=== PATIENT | female | born 1965 | race Caucasian/White ===

== ENCOUNTER → 2023-12-24 13:46 | Outpatient (REF) | payer OTHER, SELFPAY | LOC: PAVMRI 13:46 | PROVIDERS: ATTENDING PHYSICIAN Physical Medicine & Rehabilitation Pain Medicine; FAMILY PHYSICIAN Family Medicine | DX: M54.16 Radiculopathy, lumbar region (principal) | CPT/HCPCS: 72148 ==

== ENCOUNTER 2024-04-28 14:02 | Emergency (ER) | payer OTHER, SELFPAY ==
[2024-04-28 14:03] VITALS: BP 187/96
--- NOTE | 2024-04-28 14:22 | ED.GENMED ---
History of Present Illness
General
Chief Complaint: Skin Problem
Source: patient
Exam Limitations: none
Time Seen by Provider: 04/28/24 14:09
History of Present Illness
History of Present Illness:
Patient scratched by her neighbors cat yesterday. Scratched in the right mid forearm and dorsal right hand. Scratch was hard. Last tetanus is less than 5. No fever chills or other complaints. Concerned because of increased swelling overnight.
Animals had his rabies shots. Patient is truly allergic to penicillin and cephalosporins.
Past History
Past History
ED Past Medical History: HTN
ED Past Surgical History: None
Social History
Tobacco: Non-smoker
Alcohol: None
Drug: None
Personal:
Living: with family
Review of Systems
Review of Systems
All Other Systems: Not applicable
Constitutional: Denies fever or chills
Phy Exam
Physical Exam
Physical Exam:
General: Nontoxic appearing in no distress
Skin: Warm and dry, no rash
Neuro: Alert, nontoxic, grossly nonfocal
Psychiatric: Good eye contact and appropriate
Musculoskeletal: Small abrasion or puncture wound to the dorsal right hand. Small abrasion or puncture room to the mid dorsal right forearm. Surrounding the right forearm is a small area of ecchymosis. There is no drainage there is no erythema
there is no lymphangitis. Surrounding the hand puncture wound dorsally there is moderate swelling although no warmth no erythema there is somewhat of an ecchymotic hue to this.
Course
Orders/Labs/Results
Orders:
Orders
04/28/24 14:22
Clindamycin 600 mg IVPB NOW Clindamycin 600 mg/50 ml [Cleocin] 600 mg in 50 ml IV NOW
Vital Signs
Initial and Last Documented VS:
Initial Vital Signs
Temp Pulse Resp BP Pulse Ox
98.1 F 86 16 187/96 99
04/28/24 14:03 04/28/24 14:03 04/28/24 14:03 04/28/24 14:03 04/28/24 14:03
Last Documented Vital Signs
Temp Pulse Resp BP Pulse Ox
98.1 F 86 16 187/96 99
04/28/24 14:03 04/28/24 14:03 04/28/24 14:03 04/28/24 14:03 04/28/24 14:03
MDM/Problems Addressed
Differential Diagnosis Includes:
Clinically this does not appear infected at this time. The mid forearm puncture/abrasion has a small area of ecchymosis. The dorsal hand has some swelling but there is no warmth or erythema no drainage no lymphangitis. Does not have that
appearance of cellulitis at this time has more of a bruising ecchymotic appearance. Patient is on clindamycin 303 times a day. And doxycycline. At this time I do not feel there is any testing that would prove or disprove any infectious process.
The white count is 2. In addition she has no fever or chills and there is no clinical findings to support infection at this time except for this dorsal swelling that appears more ecchymosis. We will give an IV dose of clinda continue the current
regimen and follow-up closely tomorrow morning. Animal has had his rabies shots
*Pulse Oximetry
Patient hypoxic: no
*Critical Care Note
Total Time (30-74mins, 75-104mins- exclusive of procedures): Not Applicable
ED Attending Note
-
Portions of this chart may have been created with voice recognition software.� Occasional wrong word or��sound alike� substitutions may have occurred due to the inherent limitations of voice recognition software.
Discharge Plan
Departure
Patient Disposition: Home (Routine Discharge)
Date of Disposition: 04/28/24
Time of Disposition: 14:27
Patient with high blood pressure during this ER visit?: Yes
Discharge Problem:
Right arm wound , Secondary to cat scratch/puncture
Instructions: Animal and human bites, BLOOD PRESSURE
Prescriptions:
No Action
amlodipine 10 MG tablet
10 mg PO DAILY
atenolol 50 MG tablet
50 mg PO DAILY Qty: 30 0RF
simvastatin 40 MG tablet
40 mg PO DAILY Qty: 30 0RF
aspirin [Ecotrin Low Strength] 81 MG tablet,delayed release (DR/EC)
81 mg PO Q48H Qty: 15 0RF
hydrocodone-acetaminophen 1 TABLET tablet
1 PO DAILY
spironolactone 25 MG tablet
25 mg PO DAILY
sertraline 50 MG tablet
50 mg PO DAILY
hvquwlkjuqed-Am-gzsx-minerals [Multiple Vitamin, Womens] 1 EACH tablet
1 ea PO DAILY
fexofenadine 180 MG tablet
180 mg PO DAILY
omeprazole 20 MG capsule,delayed release(DR/EC)
20 mg PO DAILY
omega 5-boy-sis-fish oil [Fish Oil] 1 EACH capsule
1 PO DAILY
Activity Restrictions/Additional Instructions:
Continue your current antibiotic regimen. Get a dose of clinda and this evening. Continue the doxycycline. Keep the arm elevated. Get rechecked at urgent care tomorrow
In the meantime, if the swelling increases significantly, redness, streaking, fever or chills return immediately to the ER
Discharge Date and Time
Print Language: GREEK
[2024-04-28 14:30] VITALS: BMI 34.8
[2024-04-28] MEDS: CLEOCIN 50 IV (14:39)
[2024-04-28 15:16] VITALS: BP 152/78
== END 2024-04-28 15:18 | disposition home or self-care (01) ==
LOC: EMR 14:02
PROVIDERS: EMERGENCY PHYSICIAN Emergency Medicine; FAMILY PHYSICIAN Family Medicine
DX: S50.811A Abrasion of right forearm, initial encounter (principal); S51.831A Puncture wound without foreign body of right forearm, initial encounter; S61.431A Puncture wound without foreign body of right hand, initial encounter; W55.03XA Scratched by cat, initial encounter; I10 Essential (primary) hypertension
CPT/HCPCS: 99284; 96365

== ENCOUNTER → 2025-01-09 10:02 | Outpatient (REF) | payer OTHER, SELFPAY | LOC: WDC 10:02 | PROVIDERS: ATTENDING PHYSICIAN Family Medicine | DX: Z12.31 Encounter for screening mammogram for malignant neoplasm of breast (principal); N83.209 Unspecified ovarian cyst, unspecified side | CPT/HCPCS: 76830; 76856; 77063; 77067 ==

== ENCOUNTER → 2025-01-17 10:38 | Outpatient (REF) | payer OTHER, SELFPAY | LOC: WDC 10:38 | PROVIDERS: ATTENDING PHYSICIAN Family Medicine | DX: R92.8 Other abnormal and inconclusive findings on diagnostic imaging of breast (principal) | CPT/HCPCS: 76642 ==

== ENCOUNTER → 2025-01-25 06:19 | Outpatient (REF) | payer OTHER, SELFPAY ==
--- NOTE | 2025-01-25 09:23 | OID.BR.INTR ---
[facility] - Initial
- -
Date of Contact: 01/25/25
Met with patient. Patient given written information on navigator services available at [facility]. Will follow up as needed per protocol.
== END ==
LOC: WDC 06:19
PROVIDERS: ATTENDING PHYSICIAN Family Medicine
DX: R92.2 Inconclusive mammogram (principal); Z80.3 Family history of malignant neoplasm of breast
CPT/HCPCS: 19081; 76098; 88305; A4648

== ENCOUNTER 2025-03-15 11:40 | Emergency (ER) | payer OTHER, SELFPAY ==
[2025-03-15 11:42] VITALS: BP 160/82
[2025-03-15 12:07] LABS: Urine Character Clear (Clear)
[2025-03-15 12:09] LABS: Hematocrit 42.9 % (37.0-47.0); Hemoglobin 14.9 g/dL (12.0-16.0); Mean Corp Hgb Conc. 34.7 g/dL (33.0-37.0); Mean Corpuscular Volume 82.8 fL (81.0-99.0); Nucleated Red Blood Cells % 0 %; Platelet Count 392 10^3/uL (130-400); Red Cell Dist. Width 13.3 % (11.5-14.5)
[2025-03-15 12:18] LABS: ALT (SGPT) 41 U/L (0-35); AST (SGOT) 32 U/L (14-36); Albumin 5.1 g/dl (3.5-5.0); Alkaline Phosphatase 114 U/L (38-126); Blood Urea Nitrogen 16 mg/dl (7-17); Calcium 10.5 mg/dl (8.4-10.2); Carbon Dioxide 24 mmol/L (22-30); Chloride 106 mmol/L (98-107); Glucose 139 mg/dl (70-99); Potassium 4.5 mmol/L (3.5-5.1); Sodium 140 mmol/L (135-145); Total Protein 8.7 g/dl (6.3-8.2); eGFR > 60.00
[2025-03-15] MEDS: NSS 1000 IV (12:44)
[2025-03-15] MEDS: DILAUDID 1 MG IV (12:45)
[2025-03-15] MEDS: TORADOL 30 MG IV (12:46)
[2025-03-15 12:52] LABS: Urine White Cell 0-2 /HPF (0-5)
--- NOTE | 2025-03-15 12:57 | ED.GENMED ---
History of Present Illness
General
Chief Complaint: Urinary Symptoms
Source: patient
Exam Limitations: none
Time Seen by Provider: 03/15/25 11:59
Nursing documentation reviewed up to this point in time: agreed with
History of Present Illness
History of Present Illness:
see MDM
Past History
Past History
ED Past Medical History: HTN
ED Past Surgical History: None
Social History
Tobacco: Non-smoker
Alcohol: None
Drug: None
Personal:
Living: with family
Phy Exam
Physical Exam
Physical Exam:
see MDM
Course
Orders/Labs/Results
Orders:
Orders
03/15/25 11:56
Complete Blood Count/With Diff Urgent
Comprehensive Metabolic Panel Urgent
Urinalysis Reflex To Culture Urgent
Date Specimen was Collected: 03/15/25
Time Specimen was Collected: 11:50
Urine Microscopic Reflex Cult Urgent
03/15/25 12:35
CT Abd/Pel (IV only)-DH only Urgent
Comment:
Reason For Exam: L back hortencia, recent UTI
0.9% Sodium Chloride 1000 ml [Nss] 1,000 ml IV BOLUS
HYDROmorphone [Dilaudid] 1 mg IV NOW STA
Ketorolac [Toradol] 30 mg IV NOW STA
Abnormal Lab Results
03/15/25
11:56
WBC 11.5 H 10^3/uL
(4.8-10.8)
Absolute Monos (auto) 1.0 H 10^3/uL
(0.1-0.6)
Glucose 139 H mg/dl
(70-99)
Calcium 10.5 H mg/dl
(8.4-10.2)
ALT 41 H U/L
(0-35)
Total Protein 8.7 H g/dl
(6.3-8.2)
Albumin 5.1 H g/dl
(3.5-5.0)
Ur Occult Blood Reflex 2+ A
(Negative)
Urine RBC 7-10 A /HPF
(0-2)
Urine Bacteria (Reflex) Few A
(Negative)
Urine Albumin (Reflex) 1+ A
(Neg - Trace)
03/15/25 11:56
03/15/25 11:56
Vital Signs
Initial and Last Documented VS:
Initial Vital Signs
Temp Pulse Resp BP Pulse Ox
37.1 C 89 18 160/82 98
03/15/25 11:42 03/15/25 11:42 03/15/25 11:42 03/15/25 11:42 03/15/25 11:42
Last Documented Vital Signs
Temp Pulse Resp BP Pulse Ox
37.1 C 83 18 133/62 98
03/15/25 11:42 03/15/25 14:33 03/15/25 14:33 03/15/25 14:33 03/15/25 14:33
MDM/Problems Addressed
Differential Diagnosis Includes:
see MDM
MDM/Problems Addressed:
Note:
CHIEF COMPLAINT(S)
Severe pain with associated sweating after completing antibiotic therapy for a urinary tract infection (UTI).
HISTORY OF PRESENT ILLNESS
The patient, a 60 y/o female, recently completed a seven-day course of macrobid for a urinary tract infection yesterday presenting with L back pain intermittently.
Despite completing the course, she began experiencing severe pain with associated diaphoresis yesterday around 3 or 4 PM, which has persisted and is characterized by intermittent exacerbations. There is a noted history of hematuria, urinary urgency,
and dysuria prior to the initiation of antibiotics. The patient mentions passing small red specks in her urine and describes a sensation of pressure before urination. She reports no history of kidney stones, kidney infections, or bladder infections.
Current pain management includes Tylenol and tramadol, which is prescribed for chronic lower back pain. She denies any recent history of taking blood thinners.
PAST MEDICAL AND SURGICAL HISTORY
Significant for chronic lower back pain currently managed with tramadol.
SOCIAL DETERMINANTS AFFECTING HEALTH
The patient drove herself to the clinic today but may require assistance returning home if stronger pain medication is administered, which may impair her ability to drive.
ALLERGIES
The patient is allergic to TARIK inhibitors and Cephalexin.
REVIEW OF SYSTEMS
- Genitourinary: Reports ongoing hematuria with specks of blood.
- Constitutional: Reports severe pain with sweating.
- Urinary: Prior symptoms of urgency, frequency, and pressure sensation pre-voiding.
PHYSICAL EXAM
GENERAL: Alert , in no apparent distress, uncomfortable intermittently
HEAD: NCAT
NECK: no midline tenderness, active ROM intact, no paraspinal muscle tenderness;
CARDIAC: Regular rate and rhythm, no edema
LUNGS: Clear breath sounds bilaterally, no acute respiratory distress, no wheezes/rales/rhonchi
ABDOMEN: Soft, without focal tenderness, no r/g, no cvat, normal bowel sounds, nondistended
NEUROLOGICAL: Alert and oriented, no focal neuro deficits, CN intact, 5/5 strength, sensation intact
SKIN: Warm and dry,
Back: Mild tenderness to the left CVA/left flank region, pain spontaneously comes and goes, seems somewhat positional as well, negative straight leg raise
PSYCH: Normal and appropriate interaction.
Nursing notes reviewed and vital signs reviewed.
PLAN
1. Obtain a computed tomography scan with contrast to evaluate for signs of a kidney infection or kidney stones.
2. Administer intravenous fluids to ensure hydration.
3. Manage pain more aggressively; explore providing stronger analgesics, while ensuring the patient has a safe means of transportation post-treatment.
4. Ensure compatibility of administered medications considering patient-reported allergies.
DIFFERENTIAL DIAGNOSIS
The Differential Diagnosis includes, in no particular order and is not limited to:
1. Nephrolithiasis (Kidney stones)
2. Pyelonephritis (Kidney infection)
3. Persistent urinary tract infection
4. Bladder stones
5. Interstitial cystitis
6. Urethral stricture
7. Hemorrhagic cystitis
8. Polycystic kidney disease
9. Urinary tract obstruction
10. Renal abscess
03/15/25 - 15:46
After careful evaluation, the patients kidney function is normal with no evidence of kidney stones or infection. Despite the presence of blood in the urine, there is no indication of an active infection. Liver markers show slight elevation, but
lipase levels have been confirmed as normal, eliminating pancreatitis concerns. It is proposed to prescribe a five-day course of Ciprofloxacin to address potential low-grade infection and ensure clearance of hematuria. The patient is informed of the
risks associated with Ciprofloxacin, including the possibility of tendon rupture, and is advised to avoid heavy physical activity during treatment. No further testing is deemed necessary at this time, and if blood persists in urine, follow-up with a
urologist is recommended. Pain management with Tylenol or ibuprofen is suggested if needed. The patient will be discharged shortly.
*Pulse Oximetry
SaO2: 98
Oxygen Mode of Delivery: Room air
Patient hypoxic: no (98)
*Critical Care Note
Total Time (30-74mins, 75-104mins- exclusive of procedures): Not Applicable
ED Attending Note
-
Portions of this chart may have been created with voice recognition software.� Occasional wrong word or��sound alike� substitutions may have occurred due to the inherent limitations of voice recognition software.
Discharge Plan
Departure
Patient Disposition: Home (Routine Discharge)
Date of Disposition: 03/15/25
Time of Disposition: 15:52
Patient with high blood pressure during this ER visit?: Yes
Condition: Fair
Covid-19: Not Applicable
Discharge Problem:
Back pain, Hematuria
Prescriptions:
New
levofloxacin 500 mg tablet
500 mg PO DAILY Qty: 7 0RF
No Action
amlodipine 10 MG tablet
10 mg PO DAILY
atenolol 50 MG tablet
50 mg PO DAILY Qty: 30 0RF
simvastatin 40 MG tablet
40 mg PO DAILY Qty: 30 0RF
aspirin [Ecotrin Low Strength] 81 MG tablet,delayed release (DR/EC)
81 mg PO Q48H Qty: 15 0RF
hydrocodone-acetaminophen 1 TABLET tablet
1 PO DAILY
spironolactone 25 MG tablet
25 mg PO DAILY
sertraline 50 MG tablet
50 mg PO DAILY
xjoqkmojfimd-Ee-idqt-minerals [Multiple Vitamin, Womens] 1 EACH tablet
1 ea PO DAILY
fexofenadine 180 MG tablet
180 mg PO DAILY
omeprazole 20 MG capsule,delayed release(DR/EC)
20 mg PO DAILY
omega 3-yyl-dvv-fish oil [Fish Oil] 1 EACH capsule
1 PO DAILY
Referrals:
Anthony Mayfield DO [Family Provider, [facility]]
Activity Restrictions/Additional Instructions:
Were not sure the cause of your back pain. Your CAT scan did not show any signs of kidney stones or kidney infection. You did have some blood in your urine so I am covering you with an additional 5 to 7 days of levaquin. It is important that you
follow-up with the urologist and ensure that your blood in your urine clears up. Drink plenty of fluids. Take Tylenol and ibuprofen for pain. Return for worsening symptoms like severe back pain, leg weakness, rash, fevers or chills, vomiting,
inability to urinate etc.
While you are on the antibiotic you can use a probiotic as well as make sure to avoid exercise or running as you can have a spontaneous tendon rupture while on this antibiotic
Interventions
Interventions:
*Risk Screen - Suicide Last Done: 03/15/25 11:42
*General Assessment Last Done: 03/15/25 11:42
*Neglect/Abuse Screening Last Done: 03/15/25 11:42
*ED- Fall Risk Assessment Last Done: 03/15/25 11:42
*ED COVID-19 Vaccine History Last Done: 03/15/25 11:42
*ED Influenza Vaccine History Last Done: 03/15/25 11:42
*Nursing Disposition Last Done: 03/15/25 16:13
ED-Female Genitourinary Assessment Last Done: 03/15/25 12:00
Discharge Date and Time
Discharge Date/Time: 03/15/25 16:14
Print Language: ICELANDIC
[2025-03-15 14:33] VITALS: BP 133/62
== END 2025-03-15 16:14 | disposition home or self-care (01) ==
LOC: EMR 11:40
PROVIDERS: EMERGENCY PHYSICIAN Emergency Medicine; FAMILY PHYSICIAN Family Medicine
DX: M54.50 Low back pain, unspecified (principal); G89.29 Other chronic pain; R31.9 Hematuria, unspecified; I10 Essential (primary) hypertension; Z88.1 Allergy status to other antibiotic agents; Z88.8 Allergy status to other drugs, medicaments and biological substances
CPT/HCPCS: 99284; 96374; 96375; 96361; 74177; 80053; 81003; 81015; 85025; Q9967

== ENCOUNTER → 2025-05-22 07:08 | Outpatient (REF) | payer OTHER, SELFPAY | LOC: HWRCS 07:08 | PROVIDERS: ATTENDING PHYSICIAN Internal Medicine Cardiovascular Disease; FAMILY PHYSICIAN Family Medicine | DX: I35.1 Nonrheumatic aortic (valve) insufficiency (principal) | CPT/HCPCS: 93306 ==